=== PATIENT | male | born 1975 | race Caucasian/White ===

== ENCOUNTER 2024-08-21 08:58 | Day surgery (SDC) | payer BC ==
[~2024-08-21] VITALS: Ht 185.4 cm; Wt 150.6 kg
[~2024-08-21 08:58] MED LIST: PHENYLEPHRINE 10% OPHTH SOL 5ML OS PRN
[2024-08-21] MEDS ORDERED: fentaNYL 100 MCG/2 ML INJECTION As Ordered ONE (10:42)
[2024-08-21] MEDS ORDERED: MIDAZOLAM INJ 2MG/2ML VIAL As Ordered ONE (10:42)
[2024-08-21] MEDS: LIDOCAINE 3.5 % 1ML OPHTH TOPICAL GEL OU ONE (11:07)
[2024-08-21] MEDS: TROPICAMIDE 1% OPHTH SOLN 15ML OS SCH (11:07)
[2024-08-21] MEDS: OFLOXACIN 0.3 % (OCUFLOX) OPTH SOL 5ML OS ONE (11:07)
[2024-08-21] MEDS: PHENYLEPHRINE 2.5% OPHTH SOL 2ML OS SCH (11:07)
[2024-08-21] MEDS: CYCLOPENTOLATE 1% OPHTH SOLN 2ML BTL OS SCH (11:07)
[2024-08-21] MEDS: LIDOCAINE 1% SDV 5ML VIAL As Ordered ONE (11:21)
[2024-08-21] MEDS: TRYPAN BLUE 0.06 % 2.25 ML OPHTH SYR (VISIONBLUE) As Ordered ONE (11:23)
[2024-08-21] MEDS: VISCOAT 40-30MG/ML 0.5ML SYRINGE As Ordered ONE (11:24)
[2024-08-21] MEDS: BSS IRRIG/VANCO(10MG)/TOBRA(5MG)/EPINEPH(1:1000-0.5CC)500ML BAG-ORONLY As Ordered ONE (11:30)
[2024-08-21] MEDS: CEFUROXIME 1MG/0.1ML INTRACAMERAL INJ As Ordered ONE (11:31)
[2024-08-21 11:37] VITALS: BP 124/74; TEMP 97.6; O2SAT 98
== END 2024-08-21 11:53 | disposition home or self-care (01) ==
LOC: M SDC 08:58
PROVIDERS: ATTEND Ophthalmology
DX: H25.12 Age-related nuclear cataract, left eye (principal); Z87.891 Personal history of nicotine dependence
CPT/HCPCS: 66984; A4649; J0697; J2250; J3010; V2632